=== PATIENT | female | born 1940 | race Caucasian/White ===

== ENCOUNTER 2024-12-16 14:00 | Outpatient (RCR) | payer MEDICARE, OTHER, SELFPAY ==
--- NOTE | 2024-10-22 11:37 | OPREHPOC ---
Outpatient Therapy Plan of Care This is a Multidisciplinary Plan of Care that may contain components documented by all disciplines (PT, OT, and ST.) PT Problem 1 PT Problem #1 Knowledge Deficit PT Goal 1 Goal / Goal Update Pt will be independent in HEP Pt will verbalize understanding of diagnosis and prognosis Target Visit 10 PT Problem 2 PT Problem #2 Impaired Balance PT Goal 1 Goal / Goal Update Pt will demo an increased in Tinetti score of 5 points or more Target Visit 10 PT Goal 2 Goal / Goal Update Pt will demo a Tinetti score consistent with low fall risk Target Visit 20 PT Problem 3 PT Problem #3 Impaired Strength PT Goal 1 Goal / Goal Update Pt will demonstrate strength in all tested planes BLE of 4/5 to improve mobility Target Visit 20 PT Problem 4 PT Problem #4 Impaired Gait PT Goal 1 Goal / Goal Update Pt will demonstrate ability to ambulate with each foot passing the opposing for increased step and stride length and functional pattern. Target Visit 10 PT Goal 2 Goal / Goal Update Pt will demonstrate 2 min walk test of 240 ft or greater with LRAD. Target Visit 20
--- NOTE | 2024-10-22 11:38 | PTOPEVAL1 ---
Assessment and note entered by Alexandra Mendez, PT Evaluation Information Assessment Status Evaluation Diagnosis unsteadiness on feet, weakness ICD-10 Condition Codes (PT) Difficulty Walking R26.2,Abnormalities of gait and mobility R26.9,Weakness R53.1 Other ICD-10 Condition Codes ( Oth. Malaise and fatigue R53.81 PT) Onset 3 weeks Subjective Information Reports was seeing [employer] 3 weeks ago and was using rollator at the time without issue. States all of a sudden has been getting weaker and is using a wheel chair in the house. Pt states they went to ER, has a-fib, and saw Dr. Davis and he recommended PT. No medication changes but has a follow-up this week. Now has trouble getting up from the toilet, assists with getting up. Does walk around the house slowly using rollator but appears to be getting slower all the time. Reports she doesn't use the brakes or the seat , more for balance control. Has been using rollator 5-6 years. Lives with , house is one level with no steps to get in, no basement or upstairs Reported Pain Level Pain Score 0: Self Report Assessment PT Clinical Summary Pt presents with complaints of weakness and difficulty with mobility. Pt has been using rollator multiple years but as of three weeks ago she began feeling weaker and having a difficult time with getting up and down requiring assist from her . No known etiology to account for weakness. Per subjective discussion, appears pt has been declining in mobility much longer than three weeks however not this rapidly of a change. Pt demonstrates moderate to severe debility with very high risk of falls per the Tinneti scoring system, decreased endurance, decreased strength and complaints of right knee pain with use. Pt will benefit from physical therapy to address these deficits, and improve safe and functional independence. Plan of Care Interventions Gait Training,Neuro Re-education,Patient/Caregiver Education,Therapeutic Activities,Therapeutic Exercise,Self-Care/Home Management,Wheelchair Training PT Services Indicated Yes Treatment Frequency and 1-2x weekly x 20 visits Duration These treatments will address the objective and functional deficits as defined above. The patient will be advanced safely and appropriately in order for the patient to progress towards his/her prior level of function. Additional exercises will be introduced and as well as a comprehensive home exercise program upon discharge, if needed, ?to ensure carryover of functional gains achieved in the clinic. This treatment plan has been reviewed and agreement upon by the patient.
--- NOTE | 2024-11-23 14:50 | PTOPPROG ---
Assessment and note entered by Alexandra Mendez, PT Evaluation Information Assessment Status Progress Diagnosis unsteadiness on feet, weakness ICD-10 Condition Codes (PT) Difficulty Walking R26.2,Abnormalities of gait and mobility R26.9,Weakness R53.1 Other ICD-10 Condition Codes ( Oth. Malaise and fatigue R53.81 PT) Onset 3 weeks Subjective Information Pt reports is walking quicker wiht her rollator. isn't comfortable with trying the step into home yet with folding walker. Feels like is able to do more without a rest break . states is doing better getting up and down from the toilet and her chair. Assessment PT Clinical Summary Pt and her have attended therapy consistently for 10 visits for unsteadiness on feet and weakness. Pt and note pt has greater ease with getting up and down from sitting , is moving quicker on her rollator, and has more energy to accomplish activities prior to needing to sit. Pt demonstrates improved ability to increase step length giorgi wiht verbal cueing and demonstrates improved balance scores on her Tinetti balance test. Pt has partially met multiple goals, and would benefit from continued therapy in order to continue progressing in her mobility and independence. Plan of Care Interventions Gait Training,Neuro Re-education,Patient/Caregiver Education,Therapeutic Activities,Therapeutic Exercise,Self-Care/Home Management,Wheelchair Training PT Services Indicated Yes Treatment Frequency and Cont 1-2x weekly x 10 visits Duration These treatments will address the objective and functional deficits as defined above. The patient will be advanced safely and appropriately in order for the patient to progress towards his/her prior level of function. Additional exercises will be introduced and as well as a comprehensive home exercise program upon discharge, if needed, ?to ensure carryover of functional gains achieved in the clinic. This treatment plan has been reviewed and agreement upon by the patient.
--- NOTE | 2024-12-10 11:26 | PCPTNOTE ---
Pt called and cancelled due to being in pain and didn't feel like coming to therapy today.
--- NOTE | 2024-12-14 09:50 | PCPTNOTE ---
Pt called and cancelled appt today due to feeling unwell.
--- NOTE | 2024-12-24 10:13 | PCPTNOTE ---
Admitting Provider: Attending Provider: Olga Guajardo PA-C Patient:Candida Gleason Date of :1940 Patient has not returned for any further treatments since 12/16/2024, therefore she will be discharged at this time. Patient?s initial visit was on 10/22/2024 10:30 and she had a total of 16 visits. Her called today and stated she doesn't want to come back to therapy right now. Reports he will call when she is ready. At her 10th visit, she had been showing improvement in her sit<>stand only requiring verbal cueing for patterning, and improved walking endurance. Pt and have both been educated on importance of motion, and allowing pt to perform as many tasks as she is able to keep her fit in mind and body. The goals have been partially met.
== END 2025-01-01 10:48 | disposition home or self-care (01) ==
LOC: ANHHIPT 14:00
PROVIDERS: PCP Physician Assistant Medical; Visit Provider Physician Assistant Medical
DX: R26.81 Unsteadiness on feet (principal); R53.1 Weakness
CPT/HCPCS: 97110; 97112; 97116; 97162; 97530; 97750